=== PATIENT | female | born 1950 | race Caucasian/White ===

== ENCOUNTER 2018-09-28 08:59 | Day surgery (SDC) ==
[~2018-09-28 08:59] MED LIST: BRIMONIDINE TARTRATE 0.2% OPTH SOL OP PRN; BSS WITH EPINEPHRINE OP ONE; DEX-MOXI-KETOR OPTH INJ 1/0.5/0.4 MG/ML IO ONE; LIDOCAINE 1% 20 ML MDV ID STA; LIDOCAINE 1%/PHENYLEPHRINE 1.5% BSS (SURGERY) INTRAOCULA ONE; ZOFRAN 4 MG/2 ML IVP ONE
[2018-09-28] MEDS: TETRACAINE 0.5% UNIT-DOSE OP PRN ×3 (10:05→10:45)
[2018-09-28] MEDS: BETADINE OPTH PREP OP PRN ×2 (10:05→10:35)
[2018-09-28] MEDS: CYCLOGYL 2% OPTH OP PRN ×3 (10:05→10:15)
[2018-09-28] MEDS ORDERED: ZOFRAN 4 MG/2 ML ONE (10:37)
[2018-09-28] MEDS ORDERED: VERSED ONE ×2 (10:37)
[2018-09-28] MEDS ORDERED: SUBLIMAZE ONE (10:37)
[2018-09-28] MEDS ORDERED: DIPRIVAN 20 ML VIAL IVP ONE (10:37)
[2018-09-28 14:52] VITALS: TEMP 97.2
[2018-09-29 15:58] VITALS: BP 132/78
== END 2018-09-28 11:45 | disposition home or self-care (01) ==
LOC: SURG 08:59
PROVIDERS: ATTEND Ophthalmology
DX: H25.811 Combined forms of age-related cataract, right eye (principal)

== ENCOUNTER 2018-10-04 08:50 | Day surgery (SDC) | payer OTHER ==
[2018-10-04] MEDS: TETRACAINE 0.5% UNIT-DOSE OP PRN ×2 (09:50→10:24)
[2018-10-04] MEDS: CYCLOGYL 2% OPTH OP PRN ×3 (09:50→10:00)
[2018-10-04] MEDS: BETADINE OPTH PREP OP PRN ×2 (09:50→10:24)
[2018-10-04] MEDS ORDERED: VERSED ONE (10:28)
[2018-10-04] MEDS ORDERED: ZOFRAN 4 MG/2 ML ONE (10:28)
[2018-10-04] MEDS ORDERED: SUBLIMAZE ONE (10:28)
[2018-10-04 11:05] VITALS: BP 137/65
[2018-10-04 12:43] VITALS: TEMP 97.8
== END 2018-10-04 11:25 | disposition home or self-care (01) ==
LOC: SURG 08:50
PROVIDERS: ATTEND Ophthalmology
DX: H25.813 Combined forms of age-related cataract, bilateral (principal)